=== PATIENT | female | born 1960 | race Caucasian/White ===

== ENCOUNTER → 2018-06-22 12:43 | Outpatient (CLI) | payer OTHER, SELFPAY ==
--- NOTE | 2018-06-22 | DI.MG.S_ITS ---
BILATERAL DIGITAL SCREENING MAMMOGRAM 3D/2D WITH CAD: 06/22/2018 CLINICAL: Routine screening. Family history of breast cancer. Comparison is made to exams dated: 06/08/2017 mammogram, 06/07/2016 mammogram - [facility], and 03/12/2015 mammogram - [facility]. There are scattered fibroglandular elements in both breasts. Current study was also evaluated with a Computer Aided Detection (CAD) system. No significant masses, calcifications, or other findings are seen in either breast. There has been no significant interval change. IMPRESSION: NEGATIVE There is no mammographic evidence of malignancy. A 1 year screening mammogram is recommended. This exam was interpreted at Station ID: [id number]. NOTE: For mammograms, a report in lay terms will be sent to the patient. Approximately 15% of breast malignancies will not be visualized mammographically. In the management of a palpable breast mass, a negative mammogram must not discourage biopsy of a clinically suspicious lesion. Electronically Signed By: Remberto lobo/cami:06/22/2018 16:42:19 letter sent: Normal Exam ACR BI-RADS Category 1: Negative 3341F
== END ==
PROVIDERS: Family Provider Internal Medicine; PCP Internal Medicine; Visit Provider Internal Medicine
DX: Z12.31 Encounter for screening mammogram for malignant neoplasm of breast (principal)
CPT/HCPCS: 77063; 77067

== ENCOUNTER 2019-03-13 11:39 | Day surgery (SDC) | payer MEDICARE, OTHER, SELFPAY ==
[2019-03-13 12:15] VITALS: BP 112/75; PULSE 76; RESP 16; TEMP 36.6; O2SAT 100; BMI 29.1
[2019-03-13] MEDS: SODIUM CHLORIDE 0.9% 1,000 ML 70 ML IV (12:38)
--- NOTE | 2019-03-13 13:18 | PM.HP.1 ---
History of Present Illness History of Present Illness Date Patient Seen: 03/13/19 Time Patient Seen: 13:18 Chief complaint: [id number] SCREENING COLONOSCOPY W/POSS BX Narrative: Patient is a 58 year old female who presented for colonoscopy. Patient has a family history of polyps - sister. Patient History Surgical History Status post hysterectomy Status post knee surgery Family History (Updated 07/05/16 @ 00:00 by Conversion Provider) Brother Age: 52 Mental health problem Father Heart disease Pacemaker Grandmother Cancer Mother Age: 80 Mental health problem Social History household members: spouse Family & Social History Family History Brother Age: 52 Mental health problem Father Heart disease Pacemaker Grandmother Cancer Mother Age: 80 Mental health problem Social History: household members spouse Meds Home Medications and Allergies Home Medications Medication Instructions Recorded Confirmed Type acetaminophen [Tylenol Extra 0 mg PO Q4HP PRN #0 07/06/16 03/13/19 History Strength] levothyroxine [Synthroid] 112 mcg PO QAM #0 07/06/16 03/13/19 History Tecfidera 240 mg PO BID #0 02/08/17 03/13/19 History cyclosporine [Restasis] 1 drp OPHTHALMIC (EYE) BID 03/13/19 03/13/19 History Allergies Allergy/AdvReac Type Severity Reaction Status Date / Time carboplatin [CARBOPLATIN] Allergy Unknown Verified 03/13/19 12:39 paclitaxel [From TAXOL] Allergy Unknown Verified 03/13/19 12:39 Review of Systems Review of Systems ROS Unobtainable: All systems reviewed & are unremarkable except as noted in HPI and below Exam Vital Signs (past 8 hours): - 03/13/19 12:15 Temperature 97.9 F Pulse Rate 76 Respiratory Rate 16 Blood Pressure 112/75 Pulse Oximetry 100 Oxygen Delivery Method Room Air Narrative Exam Narrative: No acute distress Const General: cooperative, healthy appearing, comfortable and well developed Orientation: alert, awake and oriented x3 HENMT Head: atraumatic Nose: external nose normal Resp Effort & Inspection: normal respiratory effort and able to speak in complete sentences Auscultation: clear to auscultation bilaterally Cardio Palpation: normal PMI Rate: regular rate Rhythm: regular rhythm Heart Sounds: S1 normal and S2 normal GI Palpation: soft, no hepatosplenomegaly and No tender Extrem General: normal to inspection and no pedal edema Assessment & Plan Assessment & Plan narrative: 1. Screening colonoscopy, family history of colon polyps - Colonoscopy today, further recommendations
--- NOTE | 2019-03-13 13:34 | SUR.OPER ---
GLASSES IN LABELED BAG TO PACU WITH PATIENT
[2019-03-13] MEDS: fentaNYL 250 MCG/5 ML INJ IV (13:49)
[2019-03-13] MEDS: MIDAZOLAM 5 MG/5 ML VIAL IV (13:49)
--- NOTE | 2019-03-13 13:50 | PM.OP.ENDO ---
Operative Date/Time/Diagnoses Date of procedure: 03/13/19 Time of procedure: 13:29 Pre-op diagnosis: 1. Family history of polyps Procedure Notes Procedure in detail: Surgeon: Jaja Panchal DO Procedure: Colonoscopy to cecum Preoperative diagnosis: Family history of colon polyps, screening colonoscopy Postoperative diagnosis: 1. Sigmoid diverticulosis 2. Grade 2 internal hemorrhoids Medications: Conscious sedation using 5 mg IV of Midazolam and 100 mcg IV of Fentanyl Preanesthesia Assessment An H and P was performed/updated and the Px?s ASA class is 2. The procedure was discussed in detail with the patient. The potential risks and complications including infection, bleeding, missed lesions, perforation, need for surgery in case of perforation, prolonged hospital stay, and were explained. A brief question and answer period was allotted and once all questions were answered, informed consent was obtained. The patient was brought back to the procedure room and placed on standard monitoring. The patient?s vital signs were monitored continuously throughout the entire procedure. Prior to starting, a timeout was performed to confirm the patient?s identity, allergies, medications, and procedure. Procedure in detail The patient was placed in left lateral decubitus position and once adequate sedation was obtained a CAROLYN was performed. The digital rectal examination did not reveal any palpable lesions. The tip of the colonoscope was placed in the anal canal and advanced with somewhat difficulty due to redundant colon, abdominal pressure was applied all the way to the cecum which was identified by the appendiceal orifice and the ileocecal valve. Careful examination of all m[place] of the colon was performed with irrigation of any residual stool. Scattered diverticula were noted within the sigmoid colon. Internal hemorrhoids (grade 2) were noted during retroflexion. The patient tolerated the procedure well and will be brought back to the recovery area to be discharged once criteria are met. The prep was judged to be good/excellent and adequate to identify polyps less than 5 mm. The withdrawal time was 7min. The total physician intraservice time was 19min. Complications There were no complications and estimated blood loss was minimal. Recommendations: Resume previous diet Continue outPx medications Repeat colonoscopy in 5 years Office follow up if persistent symptoms from internal hemorrhoids An emergency contact number was given to the patient for any complications related to the procedure
[2019-03-13 13:55] VITALS: BP 104/61; PULSE 65; RESP 18; TEMP 36.8; O2SAT 99
[2019-03-13 14:00] VITALS: BP 103/63; PULSE 73; RESP 17; O2SAT 98
[2019-03-13 14:09] VITALS: BP 118/71; PULSE 66; RESP 16; TEMP 36.8; O2SAT 97
[2019-03-13 14:14] VITALS: BP 109/64; PULSE 64; RESP 14; O2SAT 97
[2019-03-13 14:31] VITALS: BP 111/71; PULSE 58; RESP 12; TEMP 36.4; O2SAT 99
== END 2019-03-13 14:49 | disposition home or self-care (01) ==
PROVIDERS: Family Provider Internal Medicine; PCP Internal Medicine; Visit Provider Student in an Organized Health Care Education/Training Program
PROC: 0DJD8ZZ Inspection of Lower Intestinal Tract, Via Natural or Artificial Opening Endoscopic (ICD-10-PCS; CPT 45378; principal; 2019-03-13 13:00)
DX: Z12.11 Encounter for screening for malignant neoplasm of colon (principal); K57.30 Diverticulosis of large intestine without perforation or abscess without bleeding; K64.1 Second degree hemorrhoids
CPT/HCPCS: G0121; J2250; J3010

== ENCOUNTER → 2019-06-25 09:03 | Outpatient (CLI) | payer MEDICARE, OTHER, SELFPAY ==
--- NOTE | 2019-06-25 | DI.MG.S_ITS ---
BILATERAL DIGITAL SCREENING MAMMOGRAM 3D/2D WITH CAD: 06/25/2019 CLINICAL: Routine screening. Family history of breast cancer. Comparison is made to exams dated: 06/22/2018 mammogram, 06/08/2017 mammogram, and 06/07/2016 mammogram - [facility]. There are scattered fibroglandular elements in both breasts. Current study was also evaluated with a Computer Aided Detection (CAD) system. No significant masses, calcifications, or other findings are seen in either breast. There has been no significant interval change. IMPRESSION: NEGATIVE There is no mammographic evidence of malignancy. A 1 year screening mammogram is recommended. This exam was interpreted at Station ID: [id number]. NOTE: For mammograms, a report in lay terms will be sent to the patient. Approximately 15% of breast malignancies will not be visualized mammographically. In the management of a palpable breast mass, a negative mammogram must not discourage biopsy of a clinically suspicious lesion. Electronically Signed By: Kyire thompson/cami:06/27/2019 18:06:49 letter sent: Normal Exam ACR BI-RADS Category 1: Negative 3341F
== END ==
PROVIDERS: PCP Internal Medicine; Visit Provider Internal Medicine
DX: Z12.31 Encounter for screening mammogram for malignant neoplasm of breast (principal); Z80.3 Family history of malignant neoplasm of breast
CPT/HCPCS: 77063; 77067

== ENCOUNTER → 2019-06-28 13:36 | Outpatient (CLI) | payer MEDICARE, OTHER, SELFPAY ==
--- NOTE | 2019-06-28 | DI.MRI.S_ITS ---
PROCEDURE: MR CERVICAL SPINE WO/W CON INDICATIONS: MS TECHNIQUE: Noncontrast sagittal T1 spin echo and T2 fast spin echo, sagittal STIR, sagittal PD fast spin echo, foraminal oblique sagittal T2 fast spin echo, axial gradient echo or T2 fast spin echo through the cervical spine. After the administration of contrast, sagittal and axial T1 spin echo with fat saturation through the cervical spine. COMPARISON: [facility], MR, C-SPINE W&WO CONTRAST, 10/16/2017, 9:11. FINDINGS: Image quality: Excellent. Alignment and curvature: There is normal bony alignment. Marrow: Marrow demonstrates normal overall signal. Spinal cord: Visualized spinal cord is normal in size. As identified on prior exams, there is intramedullary hyperintense signal from the level of C2-C6. Ill-defined focus is noted at T1 as well as T3-4. Foci are unchanged. No suspicious intramedullary enhancement. No cerebellar tonsillar herniation. Paraspinous soft tissues: No paravertebral masses or suspicious enhancement. As identified on prior exam, multilevel disc bulges are present from C3-4 through C6-7. There remains minimal canal narrowing at C4-5, mild C5-6 and C6-7. Multilevel foraminal narrowing is present, most notable at C5-6 demonstrate moderate left narrowing. IMPRESSION: 1. Stable appearance of intramedullary foci of nonenhancing hyperintense signal consistent with given history of demyelinating disease. 2. Multilevel degenerative changes, unchanged. Dictated by: Gilma Pickering M.D. on 06/28/2019 at 16:28 Approved by: Gilma Pickering M.D. on 06/28/2019 at 16:34
--- NOTE | 2019-06-28 | DI.MRI.S_ITS ---
PROCEDURE: MR HEAD/BRAIN WO/W CON INDICATIONS: MS TECHNIQUE: Noncontrast sagittal and axial FLAIR, axial and coronal T2 fast spin echo, axial VIBE, axial gradient echo, axial diffusion and ADC through the brain. After the administration of contrast, axial and coronal VIBE with fat saturation through the brain. COMPARISON: [facility], MR, BRAIN W&WO CONTRAST, 10/16/2017, 8:50. [facility], MR, BRAIN W&WO CONTRAST, 08/23/2016, 12:13. FINDINGS: Image quality: Excellent. CSF spaces: Ventricles are normal in size and shape. Basal cisterns are patent. No extra-axial fluid collections. Brain: There are multiple foci of T2/FLAIR hyperintensity involving the corpus callosum and periventricular white matter, as well as the left cerebellar peduncle, consistent with multiple sclerosis. Compared with the last exam on 08/15/2016, white matter lesions are more conspicuous, although which could be due to difference in technique. There is no enhancing lesions. No intracranial bleeds or mass effects. Dodd-white matter interface appears intact. No suspicious white matter lesions. No abnormal intracranial enhancement. Diffusion weighted images show no acute ischemic insults. Brainstem appears normal. Normal intravascular flow voids are present. Skull and face: Calvarial marrow signal is normal. Orbits appear normal. Sinuses: Sinuses and mastoids are clear. IMPRESSION: Multiple foci of T2/FLAIR hyperintense white matter lesions, consistent with multiple sclerosis. Compared with the last exam on 08/15/2016, white matter lesions are more conspicuous. There is, however, no enhancing lesions. Dictated by: Dorinda Rock M.D. on 06/28/2019 at 15:41 Approved by: Dorinda Rock M.D. on 07/01/2019 at 11:16
== END ==
PROVIDERS: PCP Internal Medicine; Visit Provider Specialist
DX: G35 Multiple sclerosis (principal); M47.812 Spondylosis without myelopathy or radiculopathy, cervical region
CPT/HCPCS: 70553; 72156; A9579

== ENCOUNTER → 2019-07-16 08:05 | Outpatient (CLI) | payer MEDICARE, OTHER, SELFPAY ==
[2019-07-16 08:35] LABS: Cholesterol 218 mg/dL (140-199); HDL Cholesterol 50 mg/dL (40-60); LDL Cholesterol Calculated 139 mg/dL (<100); Triglycerides 144 mg/dL (35-150)
[2019-07-16 09:22] LABS: TSH w/ Reflex to FT4 1.66 uIU/mL (0.47-4.68)
== END ==
PROVIDERS: PCP Internal Medicine; Visit Provider Internal Medicine
DX: E03.9 Hypothyroidism, unspecified (principal); E78.5 Hyperlipidemia, unspecified
CPT/HCPCS: 36415; 80061; 84443

== ENCOUNTER → 2020-01-09 14:48 | Outpatient (ROUT) | payer MEDICARE, OTHER, SELFPAY ==
[2020-01-09 16:05] LABS: TSH w/ Reflex to FT4 2.02 uIU/mL (0.47-4.68)
== END ==
PROVIDERS: PCP Internal Medicine; Visit Provider Internal Medicine
DX: E03.9 Hypothyroidism, unspecified (principal)
CPT/HCPCS: 84443

== ENCOUNTER → 2020-06-30 10:22 | Outpatient (CLI) | payer MEDICARE, OTHER, SELFPAY ==
--- NOTE | 2020-06-30 | DI.MG.S_ITS ---
BILATERAL DIGITAL SCREENING MAMMOGRAM 3D/2D WITH CAD: 06/30/2020 CLINICAL: Routine screening. Family history of breast cancer. Comparison is made to exams dated: 06/25/2019 mammogram, 06/22/2018 mammogram, and 06/08/2017 mammogram - [facility]. There are scattered fibroglandular elements in both breasts. Current study was also evaluated with a Computer Aided Detection (CAD) system. No significant masses, calcifications, or other findings are seen in either breast. There has been no significant interval change. IMPRESSION: NEGATIVE There is no mammographic evidence of malignancy. A 1 year screening mammogram is recommended. This exam was interpreted at Station ID: [id number]. NOTE: For mammograms, a report in lay terms will be sent to the patient. Approximately 15% of breast malignancies will not be visualized mammographically. In the management of a palpable breast mass, a negative mammogram must not discourage biopsy of a clinically suspicious lesion. Electronically Signed By: Manfred escalante/cami:06/30/2020 10:47:15 letter sent: Normal Exam ACR BI-RADS Category 1: Negative 3341F
== END ==
PROVIDERS: PCP Internal Medicine; Referring Provider Internal Medicine; Visit Provider Internal Medicine
DX: Z12.31 Encounter for screening mammogram for malignant neoplasm of breast (principal); Z80.3 Family history of malignant neoplasm of breast
CPT/HCPCS: 77063; 77067

== ENCOUNTER → 2021-07-19 14:18 | Outpatient (CLI) | payer MEDICARE, OTHER, SELFPAY ==
--- NOTE | 2021-07-19 | DI.RAD.S_ITS ---
PROCEDURE: XR SHOULDER RT MIN 2V INDICATIONS: Pain in right shoulder TECHNIQUE: 3 views of the shoulder were acquired. COMPARISON: None. FINDINGS: Bones: No fractures or dislocations. No suspicious bony lesions. Visualized ribs appear intact. Mild periarticular osteophyte formation at the acromioclavicular and glenohumeral joints. Soft tissues: No suspicious soft tissue calcifications. IMPRESSION: Osteoarthritis. No acute fracture. No osseous lesion. If symptoms and/or clinical suspicion for pathology persist, further assessment with repeat, or advanced imaging (e.g., CT, MRI, or bone scan) may be helpful for further assessment. Dictated by: Susan Kasper M.D. on 07/19/2021 at 16:21 Approved by: Susan Kasper M.D. on 07/19/2021 at 16:21
== END ==
PROVIDERS: PCP Internal Medicine; Referring Provider Student in an Organized Health Care Education/Training Program; Visit Provider Student in an Organized Health Care Education/Training Program
DX: M19.011 Primary osteoarthritis, right shoulder (principal); M25.511 Pain in right shoulder
CPT/HCPCS: 73030

== ENCOUNTER → 2021-08-03 11:03 | Outpatient (CLI) | payer MEDICARE, OTHER, SELFPAY ==
--- NOTE | 2021-08-03 | DI.MG.S_ITS ---
BILATERAL DIGITAL SCREENING MAMMOGRAM 3D/2D WITH CAD: 08/03/2021 CLINICAL: Routine screening. Family history of breast cancer. Comparison is made to exams dated: 06/30/2020 mammogram, 06/25/2019 mammogram, and 06/22/2018 mammogram - [facility]. There are scattered fibroglandular elements in both breasts. Current study was also evaluated with a Computer Aided Detection (CAD) system. No significant masses, calcifications, or other findings are seen in either breast. There has been no significant interval change. IMPRESSION: NEGATIVE There is no mammographic evidence of malignancy. A 1 year screening mammogram is recommended. This exam was interpreted at Station ID: [id number]. NOTE: For mammograms, a report in lay terms will be sent to the patient. Approximately 15% of breast malignancies will not be visualized mammographically. In the management of a palpable breast mass, a negative mammogram must not discourage biopsy of a clinically suspicious lesion. Electronically Signed By: Manfred escalante/cami:08/03/2021 11:31:03 letter sent: Normal Exam ACR BI-RADS Category 1: Negative 3341F
== END ==
PROVIDERS: PCP Internal Medicine; Referring Provider Internal Medicine; Visit Provider Internal Medicine
DX: Z12.31 Encounter for screening mammogram for malignant neoplasm of breast (principal); Z80.3 Family history of malignant neoplasm of breast
CPT/HCPCS: 77063; 77067

== ENCOUNTER → 2022-08-04 07:41 | Outpatient (CLI) | payer MEDICARE, OTHER, SELFPAY ==
--- NOTE | 2022-08-04 | DI.MG.S_ITS ---
BILATERAL DIGITAL SCREENING MAMMOGRAM 3D/2D WITH CAD: 08/04/2022 CLINICAL: Routine screening. Family history of breast cancer. Comparison is made to exams dated: 08/03/2021 mammogram, 06/30/2020 mammogram, and 06/25/2019 mammogram - [facility]. There are scattered areas of fibroglandular density in both breasts (category b / 25%-50% glandular tissue). Current study was also evaluated with a Computer Aided Detection (CAD) system. No significant masses, calcifications, or other findings are seen in either breast. There has been no significant interval change. IMPRESSION: NEGATIVE There is no mammographic evidence of malignancy. A 1 year screening mammogram is recommended. Based on the Tyrer Cuzick model (a risk assessment model) the patient's lifetime risk is 5.2% and her 10 year risk is 2.2%. According to the ACR, ACS, and NCCN guidelines, an annual breast MRI exam along with mammogram is recommended if the patient's lifetime risk is 20% or greater. This exam was interpreted at Station ID: [id number]. NOTE: For mammograms, a report in lay terms will be sent to the patient. Approximately 15% of breast malignancies will not be visualized mammographically. In the management of a palpable breast mass, a negative mammogram must not discourage biopsy of a clinically suspicious lesion. Electronically Signed By: Sai Mejia M.D., jr/cami:08/05/2022 13:54:10 letter sent: Normal Exam ACR BI-RADS Category 1: Negative 3341F
== END ==
PROVIDERS: PCP Internal Medicine; Referring Provider Internal Medicine; Visit Provider Internal Medicine
DX: Z12.31 Encounter for screening mammogram for malignant neoplasm of breast (principal); Z80.3 Family history of malignant neoplasm of breast
CPT/HCPCS: 77063; 77067

== ENCOUNTER 2022-09-07 13:42 | Day surgery (SDC) | payer MEDICARE, OTHER, SELFPAY ==
--- NOTE | 2022-09-07 | PATH_ITS ---
[facility] Accession Number: [id number] No. of containers..02 Tissue . 01 Material submitted: . PART A: duodenum - DUODENUM PART B: gastrointestinal site - STOMACH . 01 Diagnosis: A. Duodenum, Biopsy: Duodenal mucosa with no diagnostic abnormality. Negative for active inflammation, features of sprue, dysplasia, or malignancy. . B. Stomach, Biopsy: Body-type mucosa with mild chronic gastritis. Negative for Helicobacter by immunohistochemistry. Negative for intestinal metaplasia. Negative for dysplasia and malignancy. MRV 09/15/2022 1349 Local . 01 Electronically signed: . Mariaelena Manning MD, Pathologist NPI- [id number] . 01 Gross description: . Part A: DUODENUM: Received in formalin are 4 fragment(s) of cuevas, soft tissue measuring 0.3 x 0.1 x 0.1 cm to 0.2 x 0.1 x 0.1 cm submitted entirely in 1 cassette(s) Part B: STOMACH: Received in formalin are multiple fragment(s) of cuevas, soft tissue measuring 1.0 x 0.3 x 0.1 cm in aggregate submitted entirely in 1 cassette(s) /CPE 09/08/2022 0756 Local . 01 Microscopic: . B. An immunohistochemical stain was performed to evaluate for Helicobacter organisms and is negative. The control stain showed appropriate reactivity. . * This test was developed and its performance characteristics determined by [facility]. It has not been cleared or approved by the U.S. Food and Drug Administration. The FDA has determined that such clearance or approval is not necessary. This test is used for clinical purposes. It should not be regarded as investigational or for research. . 01 Pathologist provided ICD-10: D64.9 . 01 CPT . 918085, 478786, I10515 Specimen Comment: A courtesy copy of this report has been sent to [phone] Performed at: 01 [facility] [address] [place] [address], [place], [place] [id number] MD Remberto Livingston MD Phone: [phone]
[2022-09-07] MEDS: LACTATED RINGERS 1,000 ML 100 ML IV (14:35)
[2022-09-07 14:53] VITALS: BP 107/72; PULSE 72; RESP 16; TEMP 36.9; O2SAT 99; BMI 27.4
--- NOTE | 2022-09-07 15:34 | PM.HP.1 ---
History of Present Illness History of Present Illness Date Patient Seen: 09/07/22 Chief complaint: EGD w/poss bx Narrative: Anemia with recent negative colonoscopy Patient History Surgical History Status post hysterectomy Status post knee surgery Family & Social History Family History Brother Age: 56 Mental health problem Father Heart disease Pacemaker Grandmother Cancer Mother Age: 84 Mental health problem Social History: household members spouse Tobacco & Substance use: Smoking Status Former smoker alcohol intake current alcohol intake frequency holiday/special occasion Substance Use Type does not use Meds Home Medications and Allergies Home Medications Medication Instructions Recorded Confirmed Type acetaminophen 500 mg tablet 650 mg PO Q4HP PRN Pain, Moderate 07/06/16 09/07/22 History (Tylenol Extra Strength) ##0 levothyroxine 112 mcg tablet 112 mcg PO QAM ##0 07/06/16 09/07/22 History (Synthroid) dimethyl fumarate 240 mg 240 mg PO BID ##0 02/08/17 07/27/22 History capsule,delayed release (Tecfidera) cyclosporine 0.05 % eye drops in a 1 drp ophthalmic (eye) BID 03/13/19 09/07/22 History dropperette (Restasis) ascorbic acid (vitamin C) 1,000 mg 1,000 mg PO DAILY 07/27/22 09/07/22 History tablet,extended release (Vitamin C ER) calcium 600 mg capsule mg PO 07/27/22 History cholecalciferol (vitamin D3) 25 50 mcg PO DAILY 07/27/22 09/07/22 History mcg (1,000 unit) capsule (Vitamin D3) diroximel fumarate 231 mg 462 mg PO BID 07/27/22 07/27/22 History capsule,delayed release famotidine 20 mg tablet 20 mg PO DAILY 07/27/22 09/07/22 History flaxseed oil 1,000 mg capsule 1,000 mg PO Q OTHER DAY 07/27/22 09/07/22 History magnesium 200 mg tablet 400 mg PO DAILY 07/27/22 07/27/22 History multivitamin 1 cap PO DAILY 07/27/22 09/07/22 History oxybutynin chloride 5 mg tablet 5 mg PO BID 07/27/22 09/07/22 History Allergies Allergy/AdvReac Type Severity Reaction Status Date / Time carboplatin [CARBOPLATIN] Allergy Unknown Verified 09/07/22 14:36 paclitaxel [From TAXOL] Allergy Unknown Verified 09/07/22 14:36 Gadolinium-Containing AdvReac Unknown Verified 09/07/22 14:36 Contrast Medi Exam Vital Signs (past 8 hours): - 09/07/22 14:53 Temperature 98.5 F Pulse Rate 72 Respiratory Rate 16 Blood Pressure 107/72 Pulse Oximetry 99 Oxygen Delivery Method Room Air Oxygen Delivery Method Room Air Narrative Exam Narrative: Oropharynx free of lesions Chest clear to auscultation percussion Cardiac exam reveals no S3 or murmur Assessment & Plan Assessment & Plan narrative: Anemia, rule out upper tract lesion. EGD and biopsies to be performed. Risks benefits and alternatives been explained Time Spent With Patient Critical Care time: I spent a total of [] minutes of critical care time on this patient's care today; this time is exclusive of procedural time.
--- NOTE | 2022-09-07 15:36 | PM.OP.EGD ---
Operative Date/Time/Diagnoses Date of procedure: 09/07/22 Pre-op diagnosis: See indication and findings Procedure & Clinicians Study performed: EGD Indications: Anemia Surgeon: Daryl Rider Procedure Notes Procedure in detail: After informed consent was obtained the patient was placed in left lateral decubitus position. The video upper scope was placed into the oropharynx and with the patient's help swelled into the esophagus. The esophagus stomach and duodenum were carefully examined. On withdrawal retroflexed view the GE junction was performed. The scope was removed. The patient tolerated procedure well. Blood loss none Complications none Sedation propofol Findings 1. Normal esophagus 2. Scattered erythematous gastric mucosa biopsies taken to rule out Helicobacter 3. Normal duodenal bulb and sweep biopsies taken to rule out celiac One pathology comes back I will call Tonya to go over it and to discuss next steps
[2022-09-07 16:05] VITALS: BP 125/61; PULSE 82; RESP 18; TEMP 36.4; O2SAT 99
[2022-09-07 16:10] VITALS: BP 129/69; PULSE 75; RESP 18; O2SAT 99
[2022-09-07 16:17] VITALS: BP 131/71; PULSE 70; RESP 18; O2SAT 99
[2022-09-07 16:34] VITALS: BP 122/89; PULSE 69; RESP 16; O2SAT 99
== END 2022-09-07 16:35 | disposition home or self-care (01) ==
PROVIDERS: PCP Internal Medicine; Referring Provider Internal Medicine Gastroenterology; Visit Provider Internal Medicine Gastroenterology
PROC: 0DJ08ZZ Inspection of Upper Intestinal Tract, Via Natural or Artificial Opening Endoscopic (ICD-10-PCS; CPT 43235; principal; 2022-09-07 15:00)
DX: D64.9 Anemia, unspecified (principal); G35 Multiple sclerosis; K21.9 Gastro-esophageal reflux disease without esophagitis; K29.50 Unspecified chronic gastritis without bleeding
CPT/HCPCS: 43239; J2704

== ENCOUNTER 2023-01-09 06:17 | Day surgery (SDC) | payer MEDICARE, OTHER, SELFPAY ==
[2023-01-09 06:41] VITALS: BP 113/69; PULSE 62; RESP 16; TEMP 36.1; O2SAT 100; BMI 27.4
[2023-01-09] MEDS: LACTATED RINGERS 1,000 ML 42 ML IV (06:54)
[2023-01-09 06:55] LABS: Add Manual Diff / Slide Review NO; Basophils Absolute Auto 100 /uL (0-100); Eosinophils Absolute Auto 100 /uL (0-450); Eosinophils Percent Auto 1.6 % (2-4); Hematocrit 31.6 % (36-46); Hemoglobin 11.2 g/dL (12.0-16.0); Lymphocytes Absolute Auto 1200 /uL (1100-4500); Lymphocytes Percent Auto 17.8 % (25-40); Mean Corpuscular HGB Conc 35.5 % (30-36); Mean Corpuscular Hemoglobin 31.7 PG (26-34); Mean Corpuscular Volume 89.2 fL (80-100); Monocytes Absolute Auto 500 /uL (0-900); Monocytes Percent Auto 7.5 % (3-14); Neutrophils Absolute Auto 5000 /uL (1500-7000); Neutrophils Percent Auto 72.1 % (50-75); Platelet Count 277 X10^3/uL (150-400); Red Blood Cell Count 3.54 X10^6/uL (4.0-5.2); Red Cell Distribution Width 12.4 % (11.6-14.8); White Blood Cell Count 6.9 X10^3/uL (4.5-11.0)
[2023-01-09 08:21] VITALS: BP 114/57; PULSE 72; RESP 12; TEMP 36.7; O2SAT 96
[2023-01-09 08:26] VITALS: BP 107/59; PULSE 67; RESP 13; O2SAT 100
[2023-01-09 08:31] VITALS: BP 114/56; PULSE 64; RESP 12; O2SAT 100
[2023-01-09 08:45] VITALS: BP 105/61; PULSE 65; RESP 15; O2SAT 99
[2023-01-09 09:05] VITALS: BP 107/60; PULSE 63; RESP 14; TEMP 36.6; O2SAT 98
== END 2023-01-09 09:05 | disposition home or self-care (01) ==
PROVIDERS: PCP Internal Medicine; Referring Provider Internal Medicine Hematology & Oncology; Visit Provider Internal Medicine Hematology & Oncology
DX: D64.9 Anemia, unspecified (principal)
CPT/HCPCS: 36415; 38222; 85025; 99000; J2704; J3010

== ENCOUNTER → 2023-03-21 10:00 | Outpatient (CLI) | payer MEDICARE, OTHER, SELFPAY ==
--- NOTE | 2023-03-21 10:01 | DI.US.S_ITS ---
PROCEDURE: US PELVIC COMPLETE INDICATIONS: ANEMIA TECHNIQUE: Real-time scanning was performed of the pelvic organs, with image documentation. Additional endovaginal scanning was necessary due to incomplete visualization of the adnexal and endometrial structures by transabdominal scanning. COMPARISON: None. FINDINGS: Uterus: Surgically absent. Ovaries: Surgically absent. Other: No pathologic free abdominal or pelvic fluid. IMPRESSION: Limited study. No suspicious sonographic findings. Please note, if further characterization of the pelvis is warranted, and to evaluate for tumor recurrence, CT of the abdomen and pelvis with contrast or gynecologic protocol MRI is recommended. We strive to produce accurate, complete, and clear reports of imaging services. To assist us in improving patient care, this report was composed using standard report templates and voice recognition software. Therefore, it may contain abnormal punctuation, insertions and/or omissions. Occasional wrong-word or sound-alike substitutions may occur. Though we review the report and make efforts to correct it, we do recommend that the report be read carefully in proper context to recognize any text inaccuracies. Dictated by: Jing Brizuela M.D. on 03/21/2023 at 12:57 Approved by: Jing Brizuela M.D. on 03/21/2023 at 12:59
== END ==
PROVIDERS: PCP Internal Medicine; Referring Provider Specialist; Visit Provider Specialist
DX: N92.0 Excessive and frequent menstruation with regular cycle (principal); D64.9 Anemia, unspecified; Z85.41 Personal history of malignant neoplasm of cervix uteri
CPT/HCPCS: 76830; 76856

== ENCOUNTER 2023-03-29 06:53 | Emergency (ER) | payer MEDICARE, OTHER, SELFPAY ==
[2023-03-29] VITALS (10 sets, daily range): BP systolic 107–134; BP diastolic 56–79; PULSE 60–70; RESP 18; TEMP 36.6; O2SAT 96–100; BMI 27.4
--- NOTE | 2023-03-29 07:10 | ED.ABDPAIN ---
HPI - Abdominal Pain General Chief Complaint: Abdominal Pain Stated Complaint: bilat rib pain Time Seen by Provider: 03/29/23 06:57 Source: patient and EMS Mode of arrival: EMS Limitations: no limitations History of Present Illness HPI narrative: This 63-year-old female patient has a history of metastatic uterine cancer, hysterectomy, appendectomy. This was treated in 2006. She is currently under management for anemia by her PCM. She developed crampy abdominal discomfort yesterday, with 3 episodes of diarrhea. She notes this followed a teriyaki and cheese cake meal. She had upper abdominal cramping this morning, she had bandlike pain around her upper abdomen about 5:30 a.m., prior to arrival here. She has no nausea vomiting. She is no fever chills. There is mild back pain associated with the upper abdominal pain. She is under surveillance by her PCM, and oncology. There is no suggestion of recurrence of the cancer. Evaluation for anemia includes bone marrow biopsy, and she recently had a pelvic ultrasound that showed no obvious pathology. Related Data Home Medications Medication Instructions Recorded Confirmed acetaminophen 500 mg tablet 650 mg PO Q4HP PRN Pain, Moderate 07/06/16 03/29/23 (Tylenol Extra Strength) ##0 levothyroxine 112 mcg tablet 112 mcg PO QAM ##0 07/06/16 03/29/23 (Synthroid) cyclosporine 0.05 % eye drops in a 1 drp ophthalmic (eye) BID 03/13/19 03/29/23 dropperette (Restasis) ascorbic acid (vitamin C) 1,000 mg 1,000 mg PO DAILY 07/27/22 03/29/23 tablet,extended release (Vitamin C ER) calcium 600 mg capsule mg PO 07/27/22 03/29/23 cholecalciferol (vitamin D3) 25 50 mcg PO DAILY 07/27/22 03/29/23 mcg (1,000 unit) capsule (Vitamin D3) diroximel fumarate 231 mg 231 mg PO BID 07/27/22 03/29/23 capsule,delayed release famotidine 20 mg tablet 20 mg PO DAILY 07/27/22 03/29/23 flaxseed oil 1,000 mg capsule 1,000 mg PO Q OTHER DAY 07/27/22 03/29/23 magnesium 200 mg tablet 400 mg PO DAILY 07/27/22 03/29/23 multivitamin 1 cap PO DAILY 07/27/22 03/29/23 oxybutynin chloride 5 mg tablet 5 mg PO BID 07/27/22 03/29/23 Allergies Allergy/AdvReac Type Severity Reaction Status Date / Time carboplatin [CARBOPLATIN] Allergy Unknown Verified 03/29/23 13:21 paclitaxel [From TAXOL] Allergy Unknown Verified 03/29/23 13:21 Gadolinium-Containing AdvReac Unknown Verified 03/29/23 13:21 Contrast Medi Review of Systems Constitutional Constitutional: Denies body ache(s), Denies chills, Denies fever(s), Denies headache(s) and Denies weakness ENT Ears, Nose, Mouth, and Throat: Denies dizziness, Denies headache(s), Denies sinus pressure and Denies sore throat Cardiovascular Cardiovascular: Denies chest pain and Denies irregular heart rhythm Respiratory Respiratory: Denies chest congestion and Denies cough Gastrointestinal Gastrointestinal: Reports as per HPI Genitourinary Genitourinary: Denies dysuria Musculoskeletal Musculoskeletal: Denies back pain and Denies numbness Integumentary/Breasts Skin/Breast: Denies lesions and Denies rash Neurologic Neurologic: Denies dizziness, Denies headache(s), Denies numbness and Denies weakness Hematologic/Lymphatic On Anticoagulants: No Patient History Medical History Foot drop, left Multiple sclerosis Surgical History Status post knee surgery Status post hysterectomy Family History Brother Age: 56 Mental health problem Father Heart disease Pacemaker Grandmother Cancer Mother Age: 84 Mental health problem Social History household members: spouse Smoking Status: Never smoker alcohol intake: current Smoking Status: Never smoker alcohol intake frequency: holidays/special occasions only Substance Use Type: does not use Exam Initial Vital Signs Initial Vital Signs: Vital Signs Temperature 97.9 F 03/29/23 06:59 Pulse Rate 66 03/29/23 06:59 Respiratory Rate 18 03/29/23 06:59 Blood Pressure 134/72 03/29/23 06:59 Pulse Oximetry 99 03/29/23 06:59 Oxygen Delivery Method Room Air 03/29/23 06:59 Const General: cooperative, healthy appearing and comfortable [facility] Head: normocephalic and atraumatic Face and sinus: normal facial exam Mouth: oral mucosae normal Throat: posterior oropharynx normal Eyes Conjunctivae: conjunctivae normal (No icterus) Neck Neck: No lymphadenopathy Resp Auscultation: clear to auscultation bilaterally Cardio Palpation: normal PMI Rate: regular rate Rhythm: regular rhythm Heart Sounds: S1 normal, S2 normal and no murmurs GI Inspection: normal to inspection and non-distended Palpation: soft Auscultation: normal bowel sounds Back/Spine/Pelvis Back: normal to inspection, No back tenderness, No CVA tenderness and No warmth Skin General: no rashes or lesions noted Rashes: no rashes Wounds: no wounds Hair: normal Neuro General: patient alert, patient awake and patient oriented x3 Cranial Nerves: CN's II-XI intact bilaterally Extrem General: normal to inspection, no pedal edema and no calf tenderness Psych Mental Status: mental status grossly normal Course Orders Ordered: Discontinued Medications Sodium Chloride (Normal Saline 0.9%) 500 mls @ 1,000 mls/hr IV BOLUS ONE Stop: 03/29/23 09:59 Last Infusion: 03/29/23 10:20 Dose: Infused Documented By: Admin: 03/29/23 09:51 Dose: 1,000 mls/hr Documented By: JAYLAN Vital Signs Vital signs: Vital Signs - 8 hr 03/29/23 06:59 03/29/23 07:35 03/29/23 07:35 Temperature 97.9 F Pulse Rate 66 70 69 Respiratory Rate 18 Blood Pressure 134/72 108/57 L Pulse Oximetry 99 100 100 Oxygen Delivery Method Room Air Room Air 03/29/23 07:54 03/29/23 07:54 03/29/23 08:00 Temperature Pulse Rate 66 63 Respiratory Rate Blood Pressure 131/61 Pulse Oximetry 99 99 Oxygen Delivery Method 03/29/23 08:01 03/29/23 08:01 03/29/23 08:30 Temperature Pulse Rate 60 Respiratory Rate Blood Pressure 134/60 107/56 L Pulse Oximetry 99 Oxygen Delivery Method 03/29/23 08:30 03/29/23 09:00 03/29/23 09:00 Temperature Pulse Rate 60 63 Respiratory Rate Blood Pressure 118/67 Pulse Oximetry 96 99 Oxygen Delivery Method 03/29/23 09:47 03/29/23 09:48 03/29/23 09:48 Temperature Pulse Rate 69 69 Respiratory Rate Blood Pressure 114/79 Pulse Oximetry 96 Oxygen Delivery Method 03/29/23 10:00 03/29/23 10:00 Temperature Pulse Rate 67 Respiratory Rate Blood Pressure 117/75 Pulse Oximetry 99 Oxygen Delivery Method MDM - Abdominal Pain Medical Records Medical records narrative: Patient with known history of chronic anemia and ovarian cancer presented with bandlike abdominal pain, nausea, vomiting diarrhea. She is persistent anemia. The BC count is noted to be normal. Prior records indicate decreased renal function, her creatinine is stable at 1.22. EKG and cardiac labs are normal. There was concern for gallbladder disease, there is a small polyp on ultrasound, gallbladder is otherwise normal. Hematuria was also noted. Given her history of anemia, and cancer, a CT of the abdomen was performed. There are no significant findings in the abdomen/pelvis. The base of the lungs had ground-glass opacities, radiology noted concern for infection. The patient is not having cough, dyspnea, nor fever. She is no respiratory symptoms. It is likely that her diet yesterday affected the symptoms. Is anticipated she will improve without significant intervention. She has Pap smear and colonoscopy planned for further evaluation of her anemia. I am going to add is suggestion of a cystoscopy. Lab Data 03/29/23 07:05 03/29/23 07:05 Labs: Lab Results 03/29/23 03/29/23 Range/Units 07:05 07:59 WBC 8.6 (4.5-11.0) X10^3/uL RBC 3.30 L (4.0-5.2) X10^6/uL Hgb 10.4 L (12.0-16.0) g/dL Hct 29.9 L (36-46) % MCV 90.4 (80-100) fL MCH 31.6 (26-34) PG MCHC 35.0 (30-36) % RDW 12.3 (11.6-14.8) % Plt Count 230 (150-400) X10^3/uL Neut % (Auto) 82.6 H (50-75) % Lymph % (Auto) 9.7 L (25-40) % [place] % (Auto) 6.2 (3-14) % Eos % (Auto) 1.0 L (2-4) % Baso % (Auto) 0.5 (0-2) % Neut # (Auto) 7100 H (8215-5541) /uL Lymph # (Auto) 800 L (0458-6026) /uL [place] # (Auto) 500 (0-900) /uL Eos # (Auto) 100 (0-450) /uL Baso # (Auto) 0 (0-100) /uL Sodium 134 L (137-145) mmol/L Potassium 4.7 (3.4-5.1) mmol/L Chloride 102 (98-107) mmol/L Carbon Dioxide 26 (22-32) mmol/L BUN 21 H (7-17) mg/dL Creatinine 1.22 H (0.52-1.04) mg/dL Estimated GFR 50 L (>60) mL/min BUN/Creatinine Ratio 17.2 (6-22) Glucose 94 (80-110) mg/dL Calcium 9.3 (8.4-10.2) mg/dL Magnesium 2.2 (1.6-2.3) mg/dL Total Bilirubin 0.4 (0.2-1.3) mg/dL AST 23 (14-36) IU/L ALT 18 (<35) IU/L Alkaline Phosphatase 63 (38-126) U/L Total Creatine Kinase 62 (30-135) U/L Troponin I < 0.012 (0.01-0.034) ng/mL Total Protein 7.0 (6.3-8.2) g/dL Albumin 4.0 (3.5-5.0) g/dL Globulin 3.0 (1.7-4.1) g/dL Albumin/Globulin Ratio 1.3 (1.0-2.8) Lipase 237 (23-300) U/L Urine Color Yellow Urine Appearance Clear Urine pH 5.0 (4.5-8.0) Ur Specific [place] <=1.005 (1.000-1.035) Urine Protein Trace H (Negative) Urine Glucose (UA) Negative (Negative) g/dL Urine Ketones Negative (NEGATIVE) Urine Occult Blood 3+ H (Negative) Urine Nitrate Negative (Negative) Urine Bilirubin Negative (NEGATIVE) Urine Urobilinogen 0.2 (0.2) E.U./dL Ur Leukocyte Esterase Negative (NEGATIVE) Urine RBC 5-10/hpf H (0-5/HPF) Urine WBC 0-1/hpf (0-5/HPF) Ur Squamous Epith Cells 0-1 /hpf (0-5/HPF) Ur Transition Epith Cell 0-1/hpf (0-5/HPF) Urine Bacteria Occasional (0-1) (None) Ur Culture Indicated? Cult not indicated Point of care testing: Urine Dip Bedside Urine Glucose Negative Bedside Urine Bilirubin - Negative Bedside Urine Ketone - Negative Urine Specific [place] 1.010 Bedside Urine Occult Blood +++ Bedside Urine pH 6.0 Bedside Urine Protein +/- 15 Bedside Urine Urobilinogen - Negative Bedside Urine Nitrite - Negative Bedside Urine Leukocytes - Negative Esterase Imaging Data US - abdomen: Radiologist's Impression: [address] [address] Ultrasound Report Signed Patient: Tonya Maciel MR#: [id number] : 1960 Acct:[id number] Age/Sex: 63 / F Date of Service: 03/29/23 Loc: Accession Number: [id number] Procedure: US abdomen limited Ordering Provider: Silvino Buckner MD PROCEDURE: US ABDOMEN LIMITED INDICATIONS: EPIGASTRIC PAIN TECHNIQUE: Real-time scanning was performed of the abdominal and retroperitoneal organs, with image documentation. COMPARISON: None. FINDINGS: Liver: Mild hepatomegaly measuring 18.4 centimeters. Mildly increased echogenicity of the liver. Gallbladder: No stones or sludge. No gallbladder wall thickening. Possible gallbladder polyp measuring 5 millimeters Biliary ducts: Intrahepatic bile ducts are non-dilated. Extrahepatic bile duct caliber measures 3 mm. Normal is 6-7 mm or less in diameter, or 10 mm or less post-cholecystectomy. Pancreas: Visualized portions of the pancreas are sonographically normal. The pancreatic tail is not well seen. Miscellaneous: No free abdominal fluid. IMPRESSION: 1. No gallstones or evidence of acute cholecystitis. 2. There is a 5 millimeter probable gallbladder polyp, this is statistically favored to be benign and no follow-up is necessary. 3. Mild hepatomegaly and hepatic steatosis. CT scan - abdomen/pelvis: Radiologist's Impression: INDICATIONS: Abdominal pain. Hematuria. History of stage III ovarian ca TECHNIQUE: After the administration of intravenous contrast, axial sections acquired from the lung bases to the pubic symphysis. Coronal and sagittal reformats were performed. For radiation dose reduction, the following was used: automated exposure control, adjustment of mA and/or kV according to patient size. COMPARISON: None. FINDINGS: Image quality: Excellent. Lung bases: Scattered mild patchy ground-glass opacities throughout the lung bases. Heart: No significant findings. ABDOMEN: Liver: Focal hypoattenuation adjacent to the false form ligament, likely focal steatosis. Otherwise, the liver is within normal limits. Gallbladder: Unremarkable. Biliary ducts: Unremarkable. Pancreas: Unremarkable. Spleen: Unremarkable. Adrenal Glands: Unremarkable. Kidneys and Ureters: Unremarkable. Stomach and Bowel: Stomach, small bowel loops, and colon are unremarkable. Peritoneum: No abnormal intraperitoneal fluid. No free air. Ventral Wall: Small umbilical hernia containing a loop of small bowel without evidence of obstruction. Abdominal Nodes: No retroperitoneal or mesenteric adenopathy by size criteria. Vessels: Aorta and inferior vena cava are normal in size. Mild atherosclerotic vascular calcifications. PELVIS: Pelvic Organs: Status post hysterectomy and bilateral salpingo oophorectomy. Bladder: Unremarkable. Pelvic Nodes: No enlarged lymph nodes. Miscellaneous: Small bilateral inguinal hernias containing fat. Bones: Degenerative changes of the spine. IMPRESSION: 1. No acute abnormalities within the abdomen or pelvis. 2. Patchy ground-glass opacities throughout the lung bases, concerning for infection. 3. Postsurgical changes from hysterectomy and bilateral oophorectomy. No enhancing masses are identified within the pelvis to suggest recurrent disease. No enlarged lymph nodes. 4. Small umbilical hernia containing a loop of small bowel without evidence of obstruction. Dictated by: Arias Tirado M.D. on 03/29/2023 at 9:54 Approved by: Arias Tirado M.D. on 03/29/2023 at 10:01 ECG Data Attestation: I personally reviewed and interpreted this ECG as follows: (Normal sinus rhythm rate 63 beats per minute. Motion artifact. Normal intervals. Low-voltage QRS. No ectopy. No acute ST T wave changes.) Discharge Plan Departure Patient Disposition: Home Clinical Impression: Nausea vomiting and diarrhea Anemia Qualifiers: Anemia type: unspecified type Qualified Code(s): D64.9 - Anemia, unspecified Hematuria Qualifiers: Hematuria type: unspecified type Qualified Code(s): R31.9 - Hematuria, unspecified Instructions: Diarrhea Activity Restrictions/Additional Instructions: Take Tums as needed for indigestion. Be sure you are drinking plenty of fluids. Advance her diet as tolerated. Return here if GI symptoms are obviously worse. Regarding the anemia, I concur with the plan for pelvic exam and colonoscopy. Talk to your doctor about also urology consultation for cystoscopy. Prescriptions: No Action levothyroxine [Synthroid] 112 MCG tablet 112 mcg PO QAM Qty: 0 acetaminophen [Tylenol Extra Strength] 500 MG tablet 650 mg PO Q4HP PRN (Reason: Pain, Moderate) Qty: 0 famotidine 20 mg Tablet 20 mg PO DAILY oxybutynin chloride 5 mg Tablet 5 mg PO BID diroximel fumarate 231 mg Capsule,Delayed Release(Dr/Ec) 231 mg PO BID calcium 600 mg Capsule PO Vitamin C 1,000 mg Tablet Extended Release 1,000 mg PO DAILY flaxseed oil 1,000 mg Capsule 1,000 mg PO Q OTHER DAY Rx Instructions: administer with a meal multivitamin Capsule 1 cap PO DAILY cholecalciferol (vitamin D3) [Vitamin D3] 25 mcg (1,000 unit) Capsule 50 mcg PO DAILY magnesium 200 mg Tablet 400 mg PO DAILY cyclosporine [Restasis] 0.05 % Dropperette 1 drp OPHTHALMIC (EYE) BID Referrals: Lucy Dunn MD [Primary Care Provider] - Stand Alone Forms: Patient Portal/API, Against Medical Advice
[2023-03-29 07:14] LABS: Add Manual Diff / Slide Review NO; Basophils Absolute Auto 0 /uL (0-100); Basophils Percent Auto 0.5 % (0-2); Eosinophils Absolute Auto 100 /uL (0-450); Hematocrit 29.9 % (36-46); Hemoglobin 10.4 g/dL (12.0-16.0); Lymphocytes Absolute Auto 800 /uL (1100-4500); Lymphocytes Percent Auto 9.7 % (25-40); Mean Corpuscular Hemoglobin 31.6 PG (26-34); Mean Corpuscular Volume 90.4 fL (80-100); Monocytes Absolute Auto 500 /uL (0-900); Monocytes Percent Auto 6.2 % (3-14); Neutrophils Absolute Auto 7100 /uL (1500-7000); Neutrophils Percent Auto 82.6 % (50-75); Platelet Count 230 X10^3/uL (150-400); Red Cell Distribution Width 12.3 % (11.6-14.8); White Blood Cell Count 8.6 X10^3/uL (4.5-11.0)
--- NOTE | 2023-03-29 07:26 | DI.US.S_ITS ---
PROCEDURE: US ABDOMEN LIMITED INDICATIONS: EPIGASTRIC PAIN TECHNIQUE: Real-time scanning was performed of the abdominal and retroperitoneal organs, with image documentation. COMPARISON: None. FINDINGS: Liver: Mild hepatomegaly measuring 18.4 centimeters. Mildly increased echogenicity of the liver. Gallbladder: No stones or sludge. No gallbladder wall thickening. Possible gallbladder polyp measuring 5 millimeters Biliary ducts: Intrahepatic bile ducts are non-dilated. Extrahepatic bile duct caliber measures 3 mm. Normal is 6-7 mm or less in diameter, or 10 mm or less post-cholecystectomy. Pancreas: Visualized portions of the pancreas are sonographically normal. The pancreatic tail is not well seen. Miscellaneous: No free abdominal fluid. IMPRESSION: 1. No gallstones or evidence of acute cholecystitis. 2. There is a 5 millimeter probable gallbladder polyp, this is statistically favored to be benign and no follow-up is necessary. 3. Mild hepatomegaly and hepatic steatosis. Dictated by: Arias Tirado M.D. on 03/29/2023 at 8:22 Approved by: Arias Tirado M.D. on 03/29/2023 at 8:25
[2023-03-29 07:29] LABS: Alanine Aminotransferase 18 IU/L (<35); Albumin Globulin Ratio 1.3 (1.0-2.8); Alkaline Phosphatase 63 U/L (38-126); Aspartate Aminotransferase 23 IU/L (14-36); BUN Creatinine Ratio 17.2 (6-22); Bilirubin Total 0.4 mg/dL (0.2-1.3); Blood Urea Nitrogen 21 mg/dL (7-17); Calcium 9.3 mg/dL (8.4-10.2); Carbon Dioxide 26 mmol/L (22-32); Chloride 102 mmol/L (98-107); Creatine Kinase 62 U/L (30-135); Estimated Glomerular Filt Rate 50 mL/min (>60); Glucose 94 mg/dL (80-110); HEMOLYSIS < 15 (0-50); Lipase 237 U/L (23-300); Magnesium 2.2 mg/dL (1.6-2.3); Potassium 4.7 mmol/L (3.4-5.1); Sodium 134 mmol/L (137-145)
[2023-03-29 07:40] LABS: Troponin I < 0.012 ng/mL (0.01-0.034)
[2023-03-29 08:09] LABS: Appearance Urine UA CLEAR; Bilirubin Urine UA NEGATIVE (NEGATIVE); Color Urine UA YELLOW; Glucose Urine UA NEGATIVE (Negative); Ketones Urine UA NEGATIVE (NEGATIVE); Leukocyte Esterase Urine UA NEGATIVE (NEGATIVE); Nitrite Urine UA NEGATIVE (Negative); Occult Blood Urine UA 3+ (Negative); Protein Urine UA TRACE (Negative); Specific Gravity Urine UA <=1.005 (1.000-1.035); Urobilinogen Urine UA 0.2 E.U./dL (0.2)
[2023-03-29 08:22] LABS: Bacteria Urine Occasional (0-1); Culture Indicated Urine Cult Not Indicated; RBC Urine 5-10/HPF (0-5/HPF); Squamous Epithelial Cell Urine 0-1 /HPF (0-5/HPF); Transitional Epi Cells Urine 0-1/HPF (0-5/HPF); WBC Urine 0-1/HPF (0-5/HPF)
--- NOTE | 2023-03-29 09:30 | DI.CT.S_ITS ---
PROCEDURE: CT ABDOMEN PELVIS W CON INDICATIONS: Abdominal pain. Hematuria. History of stage III ovarian ca TECHNIQUE: After the administration of intravenous contrast, axial sections acquired from the lung bases to the pubic symphysis. Coronal and sagittal reformats were performed. For radiation dose reduction, the following was used: automated exposure control, adjustment of mA and/or kV according to patient size. COMPARISON: None. FINDINGS: Image quality: Excellent. Lung bases: Scattered mild patchy ground-glass opacities throughout the lung bases. Heart: No significant findings. ABDOMEN: Liver: Focal hypoattenuation adjacent to the false form ligament, likely focal steatosis. Otherwise, the liver is within normal limits. Gallbladder: Unremarkable. Biliary ducts: Unremarkable. Pancreas: Unremarkable. Spleen: Unremarkable. Adrenal Glands: Unremarkable. Kidneys and Ureters: Unremarkable. Stomach and Bowel: Stomach, small bowel loops, and colon are unremarkable. Peritoneum: No abnormal intraperitoneal fluid. No free air. Ventral Wall: Small umbilical hernia containing a loop of small bowel without evidence of obstruction. Abdominal Nodes: No retroperitoneal or mesenteric adenopathy by size criteria. Vessels: Aorta and inferior vena cava are normal in size. Mild atherosclerotic vascular calcifications. PELVIS: Pelvic Organs: Status post hysterectomy and bilateral salpingo oophorectomy. Bladder: Unremarkable. Pelvic Nodes: No enlarged lymph nodes. Miscellaneous: Small bilateral inguinal hernias containing fat. Bones: Degenerative changes of the spine. IMPRESSION: 1. No acute abnormalities within the abdomen or pelvis. 2. Patchy ground-glass opacities throughout the lung bases, concerning for infection. 3. Postsurgical changes from hysterectomy and bilateral oophorectomy. No enhancing masses are identified within the pelvis to suggest recurrent disease. No enlarged lymph nodes. 4. Small umbilical hernia containing a loop of small bowel without evidence of obstruction. Dictated by: Arias Tirado M.D. on 03/29/2023 at 9:54 Approved by: Arias Tirado M.D. on 03/29/2023 at 10:01
[2023-03-29] MEDS: SODIUM CHLORIDE 0.9% 500 ML 1000 ML IV (09:51)
== END 2023-03-29 10:49 | disposition home or self-care (01) ==
PROVIDERS: Emergency Medicine; Emergency Provider Emergency Medicine; PCP Internal Medicine
DX: R31.9 Hematuria, unspecified (principal); R07.9 Chest pain, unspecified; D64.9 Anemia, unspecified; R11.2 Nausea with vomiting, unspecified; R19.7 Diarrhea, unspecified; Z79.899 Other long term (current) drug therapy
CPT/HCPCS: 74177; 76705; 80053; 81001; 81003; 82550; 83690; 83735; 84484; 85025; 93005; 99284; Q9967

== ENCOUNTER → 2023-08-11 | Outpatient (CLI) | payer MEDICARE, OTHER, SELFPAY ==
--- NOTE | 2023-08-11 12:54 | DI.MG.S_ITS ---
Patient Name: OLINDA LARSEN date: 1960 Sex: F Attending Physician: Shaun Indications: Date: 08/11/2023 15:06 At the request of: NERY DAVID Procedure: MM screening mammo BI BILATERAL DIGITAL SCREENING MAMMOGRAM 3D/2D WITH CAD: 08/11/2023 CLINICAL: Routine screening. Family history of breast cancer. Comparison is made to exams dated: 08/04/2022 mammogram, 08/03/2021 mammogram, and 06/30/2020 mammogram - [facility]. There are scattered areas of fibroglandular density in both breasts (category b / 25%-50% glandular tissue). Current study was also evaluated with a Computer Aided Detection (CAD) system. There is a benign focal asymmetry in the left breast. No significant masses, calcifications, or other findings are seen in either breast. There has been no significant interval change. IMPRESSION: BENIGN There is no mammographic evidence of malignancy. A 1 year screening mammogram is recommended. Based on the Tyrer Cuzick model (a risk assessment model) the patient's lifetime risk is 5.0% and her 10 year risk is 2.2%. According to the ACR, ACS, and NCCN guidelines, an annual breast MRI exam along with mammogram is recommended if the patient's lifetime risk is 20% or greater. This exam was interpreted at Station ID: [id number]. Continued Report - Page 2 of 2 Patient Name: OLINDA LARSEN date: 1960 Sex: F Attending Physician: Shaun Indications: Date: 08/11/2023 15:06 At the request of: NERY DAVID Procedure: MM screening mammo BI NOTE: For mammograms, a report in lay terms will be sent to the patient. Approximately 15% of breast malignancies will not be visualized mammographically. In the management of a palpable breast mass, a negative mammogram must not discourage biopsy of a clinically suspicious lesion. Electronically Signed By: Mook cao/cami:08/11/2023 15:06:30 letter sent: Normal Exam ACR BI-RADS Category 2: Benign Finding(s) [id number]
== END ==
LOC: MAMMO 10:18
PROVIDERS: PCP Internal Medicine; Referring Provider Internal Medicine; Visit Provider Internal Medicine
DX: Z12.31 Encounter for screening mammogram for malignant neoplasm of breast (principal); Z80.3 Family history of malignant neoplasm of breast; R92.323 Mammographic fibroglandular density, bilateral breasts
CPT/HCPCS: 77063; 77067

== ENCOUNTER → 2024-08-30 08:25 | Outpatient (CLI) | payer MEDICARE, OTHER, SELFPAY ==
--- NOTE | 2024-08-30 08:26 | DI.MG.S_ITS ---
MM screening mammo BI: 08/30/2024. BI-RADS: 2 CLINICAL: 64-year old female for bilateral screening mammogram. Tyrer-Cuzick lifetime risk of 14.6%. Current reported family history of breast cancer: maternal grandmother, mother and maternal aunt's daughter. Personal history of ovarian cancer. PRIOR EXAMS 08/11/2023, 08/04/2022, 08/03/2021, 06/30/2020, 06/25/2019, 06/22/2018, 06/08/2017, 06/07/2016. MAMMOGRAPHY TECHNIQUE: 2D and 3D (tomosynthesis) digital mammographic views obtained, with additional images as needed for full coverage. Current study was also evaluated with a Computer Aided Detection (CAD) system. DENSITY B. There are scattered areas of fibroglandular density. MAMMOGRAPHY FINDINGS Right: No suspicious finding with benign findings noted. Left: Benign-appearing asymmetry noted on the left. No suspicious finding with benign findings noted. IMPRESSION: * No evidence of malignancy with benign findings. RECOMMENDATIONS Bilateral * Annual screening mammography. OVERALL ASSESSMENT CATEGORY BI-RADS-2: Benign. The [employer] recommends annual screening mammography beginning at age 40 for women with average risk of breast cancer. ELECTRONICALLY SIGNED: Mook Merritt M.D. on 08/30/2024 at 09:04:33 AM PT Interpreting Station ID: [id number]
== END ==
PROVIDERS: PCP Internal Medicine; Referring Provider Internal Medicine; Visit Provider Internal Medicine
DX: Z12.31 Encounter for screening mammogram for malignant neoplasm of breast (principal); Z80.3 Family history of malignant neoplasm of breast; Z85.43 Personal history of malignant neoplasm of ovary
CPT/HCPCS: 77063; 77067

== ENCOUNTER → 2025-05-20 11:26 | Outpatient (CLI) | payer MEDICARE, OTHER, SELFPAY ==
--- NOTE | 2025-05-20 11:28 | DI.RAD.S_ITS ---
He PROCEDURE: XR DEXA AXIAL SKELETON INDICATIONS: screening COMPARISON: None. FINDINGS: Lumbar Spine: Bone mineral density 0.978 g/cm2, T score -0.6, normal. Left Femoral Neck: Bone mineral density 0.785 g/cm2, T score -0.6. Left Hip: Bone mineral density 0.908 g/cm2, T score -0.3, normal. Fracture Risk Calculation (when applicable): 10-year fracture risk of a major osteoporotic fracture 12 percent and of a hip fracture 0.7 percent. (T score greater or equal to -1.0 to: NORMAL) (T score from -1.1 to -2.4: OSTEOPENIA) (T score less than or equal to -2.5: OSTEOPOROSIS) IMPRESSION: Normal Follow-up guidelines as follows: Osteoporosis: Consider a repeat DEXA and Vertebral Fracture Assessment (VFA) exam in 2 years or sooner if medically necessary, to reassess this patient's status. Osteopenia: Consider a repeat DEXA in 2-3 years to reassess this patient's status, or if there is a new clinical indication. Normal: Consider a repeat DEXA in 5 years or sooner, or if there is a new clinical indication. All treatment decisions require clinical judgment and consideration of individual patient factors, including patient preferences, comorbidities, previous drug use, risk factors not captured in the FRAX model (e.g., frailty, falls, vitamin D deficiency, increased bone turnover, interval significant decline in bone density ) and possible under- or over-estimation of fracture risk by FRAX. In addition, the NOF Guide recommends that FDA-approved medical therapies be considered in postmenopausal women and men age >= 50 years with a: * Hip or vertebral (clinical or morphometric) fracture * T-score of <=-2.5 at the spine or hip * Ten-year fracture probability by FRAX of >= 3% for hip fracture or >=20% for major osteoporotic fracture. Dictated by: Jorgito Combs M.D. on 05/20/2025 at 14:57 Approved by: Jorgito Combs M.D. on 05/20/2025 at 14:58
== END ==
LOC: RAD 11:28
PROVIDERS: PCP Internal Medicine; Referring Provider Internal Medicine; Visit Provider Internal Medicine
DX: Z78.0 Asymptomatic menopausal state (principal)
CPT/HCPCS: 77080